=== PATIENT | female | born 1945 ===

== ENCOUNTER 2017-07-13 07:13 | Day surgery (SDC) | payer OTHER ==
[~2017-07-13 07:13] MED LIST: ATACAND32 MG PO; CARDURA XL8 MG PO; ECOTRIN81 MG PO; GLUCOTROL10 MG PO; LANTUS SOL100 UNIT/1; NORVASC5 MG PO; ZOCOR5 MG PO
== END 2017-07-13 12:20 | disposition home or self-care (01) ==
LOC: CIR.AMB 07:13
DX: C67.5 Malignant neoplasm of bladder neck (principal); N30.20 Other chronic cystitis without hematuria